=== PATIENT | female | born 1935 | race Caucasian/White ===

== ENCOUNTER 2017-06-26 22:42 | Inpatient (IN) | payer OTHER ==
--- NOTE | 2017-06-27 03:39 | ED Physician Chart ---
ED Chief Complaint/HPI - Patient Information Date Seen:: 06/27/17 Time Seen:: 03:26 Chief Complaint:: Hypoglycemia and fall History of Present Illness:: 81 yo female was brought by ambulance to ER for evaluation of fall and glucose level of 40 at home. The patient's son was present at bedside and reported that the patient recently had increasing incidence of falling which resulted in a hospitalization a week ago. At ER, the patient's glucose level went down to 23. She remained awake and alert. Due to her high fall risk and hypoglycemia episodes, the patient needed to be placed at a SNF. Allergies:: Allergies Allergy/AdvReac Type Severity Reaction Status Date / Time No Known Allergies Allergy Verified 06/27/17 03:21
[2017-06-27] MEDS ORDERED: Dextrose 10% 1,000 ML IV ONE (04:25)
[2017-06-27] MEDS: Dextrose 10% 1,000 ML IV SCH ×2 (04:26→18:43)
[2017-06-27 05:04] LABS: % BASOPHILS 0.7 % (0.0-2.0); % EOSINOPHILS 1.4 % (0.0-5.0); % MONOCYTES 5.6 % (2.0-10.0); % NEUTROPHILS 83.3 % (40.0-80.0); BASOPHILE ABSOLUTE 0.1 Th/cumm (0-0.2); EOSINOPHILE ABSOLUTE 0.1 Th/cmm (0.1-0.4); HEMOGLOBIN 10.9 gm/dL (12-16); LYMPHOCYTE ABSOLUTE 0.7 Th/cmm (1.5-3.0); MEAN CELL VOLUME 69.7 fl (81-100); MEAN CORPUSCULAR HEMOGLOBIN 22.3 pg (27.0-31.0); MEAN CORPUSCULAR HGB CONC 32.1 pg (28.0-36.0); MEAN PLATELET VOLUME 8.5 fl; MONOCYTE ABSOLUTE 0.4 Th/cmm (0.3-1.0); NEUTROPHILE ABSOLUTE 6.6 Th/cmm (1.8-8.0); PLATELET COUNT 156 Th/cmm (150-400); RED BLOOD COUNT 4.88 Mil/cmm (3.80-5.20); RED CELL DISTRIBUTION WIDTH 16.1 % (11.5-20.0); WHITE BLOOD COUNT 7.9 Th/cmm (4.8-10.8)
[2017-06-27 05:23] LABS: ALBUMIN 3.7 gm/dL (3.7-5.3); ALKALINE PHOSPHATASE 60 U/L (34-104); ANION GAP 9.5 (7.0-16.0); BILIRUBIN,TOTAL 0.4 mg/dL (0.3-1.0); BUN - UREA NITROGEN 16 mg/dL (7-25); CALCIUM SERUM 9.2 mg/dL (8.6-10.3); CARBON DIOXIDE 30.5 mEq/L (21.0-31.0); CHLORIDE 103 mEq/L (98-107); CREATININE - SERUM 0.6 mg/dL (0.6-1.2); GLUCOSE 188 mg/dL (70-105); MAGNESIUM 1.6 mg/dL (1.9-2.7); SGOT 15 U/L (13-39); SGPT/ALT 12 U/L (7-52); SODIUM SERUM 139 mEq/L (136-145); TOTAL PROTEIN,SERUM 5.6 gm/dL (6.0-8.3)
[2017-06-27 15:44] LABS: A1C % 7.3 % (4.0-6.0)
[2017-06-27] MEDS ORDERED: Pneumococcal Vaccine 0.5 mL Vial IM ONE (17:44)
[2017-06-28] MEDS ORDERED: Non-Formulary Item 1 EA (Multivitamin [Multivitamins] 1 CAP) PO SCH (10:45)
[2017-06-28] MEDS ORDERED: DOCUSATE SODIUM 100 MG PO SCH (10:45)
[2017-06-28] MEDS: Atorvastatin Calcium 10 MG TAB PO SCH (12:30)
[2017-06-28] MEDS: Aspirin 81mg Chewable Tab PO SCH (12:30)
[2017-06-28] MEDS: Ferrous Sulfate 325 MG TAB PO SCH (12:30)
--- NOTE | 2017-06-28 12:41 | History & Physical ---
ADMIT DATE: 06/28/2017 CHIEF COMPLAINT: Syncopal episode and hypoglycemia. HISTORY OF PRESENT ILLNESS: This is an 81-year-old lady with history of insulin-dependent diabetes, hypertension, neuropathy, hypercholesterolemia who apparently has been having recurrent falls in the last week or so. She apparently had a fall while grocery shopping a week ago and was transferred to [facility] and now she was transferred to the ER secondary to a fall while at home. Her glucose at home was 40 and at the ER was verified to be low at 23. The patient apparently regained consciousness after she was helped by family members and remained awake and alert while being transferred to the ER. Currently, she feels better. Denies any chest pain, any angina type symptomatology, any shortness of breath and also denies any fever or chills as of late. The patient has been admitted to the tele morel for further management and care. Of note, patient is somewhat of a poor historian, but appears to be comfortable. Family is at bedside. PAST MEDICAL HISTORY: As noted above. Likely dementia. PAST SURGICAL HISTORY: None listed. FAMILY HISTORY: Likely noncontributory to this admission. SOCIAL HISTORY: No tobacco, ETOH or illicit drug usage. Lives at home with family. ALLERGIES: NKDA. OUTPATIENT MEDICATIONS: Novolin N insulin at 40 units b.i.d., potassium 10 mEq daily, Lasix 40 daily, Lispro b.i.d., Tylenol p.r.n., aspirin 81 daily, atorvastatin 10 daily, Plavix 75 daily, vitamin B12 100 mcg daily, docusate sodium 100 mg daily, iron sulfate 325 daily, lisinopril 10 daily, metoprolol 50 daily, multivitamins daily, Lyrica 50 mg b.i.d. REVIEW OF SYSTEMS: CONSTITUTIONAL: She denies any fever, chills, and recent weight loss. CARDIOVASCULAR: No chest pain, palpitations. PULMONARY: No cough or phlegm production. Denies any upper respiratory infection symptomatology. GASTROINTESTINAL: No bowel habit changes including no diarrhea, constipation or abdominal pain. GENITOURINARY: No bladder habit changes such as dysuria or hematuria. NEUROLOGIC: The patient denies any headaches, denies any vertigo-like symptoms. PHYSICAL EXAMINATION: VITAL SIGNS: Temperature 98.6, pulse 79-82, BP 141/50, respirations 18-20, saturations 99-100% on room air. GENERAL: She is a well-developed, well-nourished female, currently awake and alert x 2. HEAD AND NECK: Normocephalic, atraumatic. Pupils are reactive to light. Extraocular movements are intact. Oropharynx moist and clear. CARDIAC: Regular rate and rhythm with distant sounds. LUNGS: Decreased, but clear to auscultation. ABDOMEN: Soft, supple, nontender, nondistended, normoactive bowel sounds. EXTREMITIES: Lower extremities: There is no pedal edema. NEUROLOGIC: Grossly nonfocal and intact. Cranial nerves 2-12 are within normal limits. She is able to move all 4 extremities with equal force and strength. LABORATORY DATA: H and H , otherwise CBC within normal limits. Glucose 188. A1c 7.3. Chemistry within normal limits. LFTs within normal limits. DIAGNOSTICS: None current. ASSESSMENT: 1. Status post fall/syncope secondary to hypoglycemia. 2. Recent fall. 3. Insulin-dependent diabetes with hypoglycemic episodes. 4. Hypertension. 5. History of neuropathy likely secondary to diabetes. 6. Hypercholesterolemia. 7. Dementia. PLAN: The patient has been admitted to the telemetry morel for management and care and has been placed on D10 at 70 mL per hour and her insulin has been withheld. Her other medications will be continued as schedule. Sliding scale with a regular insulin has also been ordered. Physical therapy will also be asked for and per family's request, a [facility] facility evaluation will be asked for given her recent falls. [facility]# [id number] [facility]
[2017-06-29 04:50] LABS: % EOSINOPHILS 4.1 % (0.0-5.0); % LYMPHOCYTES 16.2 % (20.0-50.0); % MONOCYTES 10.4 % (2.0-10.0); % NEUTROPHILS 68.3 % (40.0-80.0); BASOPHILE ABSOLUTE 0.1 Th/cumm (0-0.2); EOSINOPHILE ABSOLUTE 0.3 Th/cmm (0.1-0.4); HEMATOCRIT 36.1 % (41.0-60); HEMOGLOBIN 11.5 gm/dL (12-16); LYMPHOCYTE ABSOLUTE 1.1 Th/cmm (1.5-3.0); MEAN CELL VOLUME 69.2 fl (81-100); MEAN CORPUSCULAR HGB CONC 31.8 pg (28.0-36.0); MEAN PLATELET VOLUME 9.3 fl; MONOCYTE ABSOLUTE 0.7 Th/cmm (0.3-1.0); NEUTROPHILE ABSOLUTE 4.6 Th/cmm (1.8-8.0); PLATELET COUNT 153 Th/cmm (150-400); RED BLOOD COUNT 5.22 Mil/cmm (3.80-5.20); RED CELL DISTRIBUTION WIDTH 17.2 % (11.5-20.0); WHITE BLOOD COUNT 6.8 Th/cmm (4.8-10.8)
[2017-06-29 05:15] LABS: ANION GAP 10.7 (7.0-16.0); BUN - UREA NITROGEN 13 mg/dL (7-25); CALCIUM SERUM 9.3 mg/dL (8.6-10.3); CARBON DIOXIDE 28.5 mEq/L (21.0-31.0); CHLORIDE 102 mEq/L (98-107); CREATININE - SERUM 0.6 mg/dL (0.6-1.2); GLUCOSE 207 mg/dL (70-105); MAGNESIUM 1.8 mg/dL (1.9-2.7); POTASSIUM SERUM 4.2 mEq/L (3.5-5.1); SODIUM SERUM 137 mEq/L (136-145)
--- NOTE | 2017-06-29 08:09 | Diagnostic Imaging Report ---
Pelvis single view Indication: Pain rule out fracture Comparison: none Findings: Assessment of the pubic region is limited due to positioning and patient distal fecal impaction. Otherwise no evidence of a gross fracture. Mild degenerative changes of bilateral hip joints are noted. No evidence of dislocation. Degenerative changes of SI joints and lower lumbar spine are noted. Postsurgical changes of the lower lumbar spine are also noted. Impression: Suboptimal assessment of the pubic region due to positioning patient's distal fecal impaction, however, no evidence of an acute fracture. Degenerative changes. Postsurgical changes of the lumbar spine. In the setting of trauma, if clinical symptoms persist and there is continued concern for an occult fracture, follow up exams such as repeat x-ray or CT examination is recommended.
[2017-06-29] MEDS: Atorvastatin Calcium 10 MG TAB PO SCH (09:16)
[2017-06-29] MEDS: Aspirin 81mg Chewable Tab PO SCH (09:16)
[2017-06-29] MEDS: Ferrous Sulfate 325 MG TAB PO SCH (09:17)
[2017-06-29] MEDS: Multivitamin Tab PO SCH (09:18)
[2017-06-29] MEDS: INSULIN HUMAN ISOPHANE (NPH) 100 UNITS/ML SUBQ SCH ×2 (12:05→21:34)
[2017-06-30 06:17] LABS: % EOSINOPHILS 4.9 % (0.0-5.0); % LYMPHOCYTES 13.9 % (20.0-50.0); % MONOCYTES 9.8 % (2.0-10.0); % NEUTROPHILS 71.4 % (40.0-80.0); EOSINOPHILE ABSOLUTE 0.4 Th/cmm (0.1-0.4); HEMATOCRIT 35.3 % (41.0-60); LYMPHOCYTE ABSOLUTE 1.1 Th/cmm (1.5-3.0); MEAN CELL VOLUME 69.2 fl (81-100); MEAN CORPUSCULAR HEMOGLOBIN 21.6 pg (27.0-31.0); MEAN CORPUSCULAR HGB CONC 31.2 pg (28.0-36.0); MEAN PLATELET VOLUME 8.9 fl; MONOCYTE ABSOLUTE 0.7 Th/cmm (0.3-1.0); NEUTROPHILE ABSOLUTE 5.4 Th/cmm (1.8-8.0); PLATELET COUNT 152 Th/cmm (150-400); RED CELL DISTRIBUTION WIDTH 16.5 % (11.5-20.0); WHITE BLOOD COUNT 7.6 Th/cmm (4.8-10.8)
[2017-06-30 06:50] LABS: BUN - UREA NITROGEN 16 mg/dL (7-25); CALCIUM SERUM 8.9 mg/dL (8.6-10.3); CHLORIDE 105 mEq/L (98-107); CREATININE - SERUM 0.6 mg/dL (0.6-1.2); GLUCOSE 115 mg/dL (70-105); SODIUM SERUM 139 mEq/L (136-145)
[2017-06-30] MEDS: Ferrous Sulfate 325 MG TAB PO SCH (09:38)
[2017-06-30] MEDS: Atorvastatin Calcium 10 MG TAB PO SCH (09:38)
[2017-06-30] MEDS: Multivitamin Tab PO SCH (09:38)
[2017-06-30] MEDS: Aspirin 81mg Chewable Tab PO SCH (09:38)
[2017-06-30] MEDS: INSULIN HUMAN ISOPHANE (NPH) 100 UNITS/ML SUBQ SCH ×2 (10:57→22:19)
[2017-07-01 06:13] LABS: % EOSINOPHILS 4.4 % (0.0-5.0); % LYMPHOCYTES 12.7 % (20.0-50.0); % NEUTROPHILS 73.9 % (40.0-80.0); EOSINOPHILE ABSOLUTE 0.4 Th/cmm (0.1-0.4); HEMATOCRIT 36.3 % (41.0-60); HEMOGLOBIN 11.7 gm/dL (12-16); LYMPHOCYTE ABSOLUTE 1.1 Th/cmm (1.5-3.0); MEAN CELL VOLUME 69.4 fl (81-100); MEAN CORPUSCULAR HEMOGLOBIN 22.3 pg (27.0-31.0); MEAN CORPUSCULAR HGB CONC 32.1 pg (28.0-36.0); MEAN PLATELET VOLUME 9.3 fl; MONOCYTE ABSOLUTE 0.8 Th/cmm (0.3-1.0); NEUTROPHILE ABSOLUTE 6.7 Th/cmm (1.8-8.0); PLATELET COUNT 179 Th/cmm (150-400); RED BLOOD COUNT 5.24 Mil/cmm (3.80-5.20); RED CELL DISTRIBUTION WIDTH 16.8 % (11.5-20.0)
[2017-07-01 06:58] LABS: ANION GAP 10.9 (7.0-16.0); BUN - UREA NITROGEN 19 mg/dL (7-25); CARBON DIOXIDE 28.3 mEq/L (21.0-31.0); CHLORIDE 104 mEq/L (98-107); CREATININE - SERUM 0.6 mg/dL (0.6-1.2); GLUCOSE 146 mg/dL (70-105); MAGNESIUM 1.9 mg/dL (1.9-2.7); POTASSIUM SERUM 4.2 mEq/L (3.5-5.1); SODIUM SERUM 139 mEq/L (136-145)
[2017-07-01] MEDS: Atorvastatin Calcium 10 MG TAB PO SCH (10:10)
[2017-07-01] MEDS: Aspirin 81mg Chewable Tab PO SCH (10:10)
[2017-07-01] MEDS: Ferrous Sulfate 325 MG TAB PO SCH (10:10)
[2017-07-01] MEDS: Multivitamin Tab PO SCH (10:10)
[2017-07-01] MEDS: INSULIN HUMAN ISOPHANE (NPH) 100 UNITS/ML SUBQ SCH ×2 (10:20→22:52)
[2017-07-02] MEDS: Multivitamin Tab PO SCH (09:50)
[2017-07-02] MEDS: Aspirin 81mg Chewable Tab PO SCH (09:51)
[2017-07-02] MEDS: Atorvastatin Calcium 10 MG TAB PO SCH (09:51)
[2017-07-02] MEDS: Ferrous Sulfate 325 MG TAB PO SCH (09:51)
[2017-07-02] MEDS: INSULIN ASPART SLIDING SCALE 100 UNITS/ML UNIT SUBQ SCH ×2 (12:55→17:34)
[2017-07-02] MEDS ORDERED: INSULIN HUMAN ISOPHANE (NPH) 100 UNITS/ML SUBQ SCH (16:30)
--- NOTE | 2017-07-04 13:58 | Discharge Summary ---
DATE OF DISCHARGE: 07/02/2017 ADMITTING DIAGNOSES: 1. Multiple syncope secondary to hypoglycemia. 2. Recent falls, likely secondary to hypoglycemia. SECONDARY DIAGNOSES: 1. Include insulin-dependent diabetes. 2. Essential hypertension. 3. History of neuropathy likely secondary to diabetes. 4. History of hypercholesterolemia. 5. Dementia. DISCHARGE DIAGNOSES: 1. Syncope secondary to hypoglycemia, stable. 2. Insulin-dependent diabetes with hypoglycemic episodes resolved. MAJOR PROCEDURES: There were no major procedures done during this admission. BRIEF HOSPITAL COURSE: The patient is an 81-year-old lady with history of insulin-dependent diabetes, hypertension, neuropathy, hypercholesterolemia who presented with a syncopal episode. She apparently also had a recent or a similar episode a week prior to admission and at that time, she was transferred to [facility]. On this admission, her glucose was noted to be 40 at home and apparently was 23 en route to the ER. She was placed on a D10 drip and was admitted for further management and care. Her insulins were held and her glucometers were noted to be around the 200 area for the first couple of days. She was admitted to the tele morel and again was placed on D10 drip and discontinued on her insulin. She was ordered PT and per family's request mental health case manager started looking for a retirement given the frequency of her hypoglycemic episodes. By 06/28/2017, her glucometer readings did slowly get high and she was placed back on NPH insulin with gradual improvement of her hypoglycemia. The patient did remain stable throughout her hospital stay, tolerating p.o. well and her labs has a glucometer readings, did remain stable. MEDICATIONS ON DISCHARGE: Tylenol p.r.n., aspirin 81 daily, atorvastatin 10 at bedtime, Plavix 75 every day, vitamin B12 100 mg every day, docusate sodium 100 mg every day, iron sulfate 325 every day, Novolin NPH 20 units b.i.d., lisinopril 10 every day, metoprolol 50 every day, multivitamins every day, Lyrica 50 b.i.d. For a view of medications on discharge, please refer to the HPI. CONDITION ON DISCHARGE: Stable. DISPOSITION: The patient was transferred to a detention facility. [facility]# [id number]
== END 2017-07-02 19:40 | DRG 639 ==
LOC: EDBD 22:42 → ER 22:42 → TELE 06-27 15:44 → MSI 06-27 18:57
PROVIDERS: ADMIT Internal Medicine; ATTEND Internal Medicine
DX: E11.649 Type 2 diabetes mellitus with hypoglycemia without coma (principal); E11.40 Type 2 diabetes mellitus with diabetic neuropathy, unspecified; F03.90 Unspecified dementia, unspecified severity, without behavioral disturbance, psychotic disturbance, mood disturbance, and anxiety; I10 Essential (primary) hypertension; E78.00 Pure hypercholesterolemia, unspecified; W18.30XA Fall on same level, unspecified, initial encounter; Y93.89 Activity, other specified; Y92.049 Unspecified place in boarding-house as the place of occurrence of the external cause; Y99.8 Other external cause status; Z79.4 Long term (current) use of insulin
CPT/HCPCS: 36415-UA; 72170-TC; 80048-TC; 80053-TC; 80061-TC; 82948-90; 83036-90; 83735-TC; 83880-TC; 84443-TC; 85025-TC; 97530; J1815; J3475; X3904; Z7610